=== PATIENT | female | born 1955 | race Caucasian/White ===

== ENCOUNTER 2024-08-12 06:54 | Emergency (ER) | payer BC, SELFPAY ==
[2024-08-12 07:04] VITALS: BP 159/92
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
== END 2024-08-12 09:35 | disposition home or self-care (01) ==
LOC: EMR 06:54
PROVIDERS: EMERGENCY PHYSICIAN Student in an Organized Health Care Education/Training Program; FAMILY PHYSICIAN Nurse Practitioner Family
DX: S50.11XA Contusion of right forearm, initial encounter (principal); X58.XXXA Exposure to other specified factors, initial encounter; M25.531 Pain in right wrist; I10 Essential (primary) hypertension
CPT/HCPCS: 29125; 99283